=== PATIENT | male | born 1950 | race Caucasian/White ===

== ENCOUNTER 2016-07-21 07:43 | Emergency (ER) | payer MEDICARE, OTHER ==
[~2016-07-21] VITALS: Ht 172.7 cm; Wt 98.0 kg
[~2016-07-21 07:43] MED LIST: ASPI-99 PO; HYDR-3129 PO; MEVA40TA6 PO; NEBI2.5 PO; NEXI40CA PO; RYTH225C PO; VIAG50TA PO
[2016-07-21 07:48] VITALS: BP 117/75; PULSE 58; RESP 16; TEMP 98.6; O2SAT 99
--- NOTE | 2016-07-21 08:06 | PD ---
HPI Chief Complaint: Abdominal Pain Time Seen by Provider: 07:53 Travel History International Travel<30 days: No Contact w/Intl Traveler<30days: No Traveled to known affect area: No History of Present Illness HPI This is a 66-year-old male who presents with 1 month of constant mild epigastric abdominal discomfort, feeling like a throbbing in the upper abdomen, worse with eating associated with some gas, with no nausea, vomiting, fevers, chills, diarrhea or constipation. The patient is already on Nexium but he saw a commercial regarding Nexium causing stomach viruses and was concerned about that so he took himself off yesterday. He had a right upper quadrant ultrasound about a month ago in the setting of the symptoms demonstrating a normal gallbladder. He has an appointment with his city sanitarian in 2 weeks. He says he had a normal endoscopy 1 year ago and a normal colonoscopy 5 years ago. He says the symptoms are not exertional and he has no chest pain, shortness of breath or dyspnea on exertion. PFSH Past Medical History Hx Anticoagulant Therapy: Yes (81 MG. ASA) Arthritis: Yes Asthma: No Atrial Fibrillation: Yes Autoimmune Disease: No Blood Disorders: No Anxiety: Yes Depression: No Heart Rhythm Problems: Yes (A-FIB) Cancer: No Cardiovascular Problems: Yes (CHOL) High Cholesterol: Yes Chemotherapy: No Chest Pain: No Congestive Heart Failure: No COPD: No Cerebrovascular Accident: No Diabetes: No Diminished Hearing: Yes (HEARING AIDS) Endocrine: No Gastrointestinal Disorders: Yes GERD: Yes Glaucoma: No Genitourinary: No Headaches: No Hepatitis: No Hiatal Hernia: Yes Hypertension: Yes Immune Disorder: No Implanted Vascular Access Dvce: No Musculoskeletal: Yes (NECK AND BACK PAIN) Neurologic: No Psychiatric: Yes Reproductive: No Respiratory: Yes (SPOT ON LUNG) Immunizations Current: Yes Migraines: No Myocardial Infarction: No Radiation Therapy: No Renal Failure: No Seizures: No Sickle Cell Disease: No Sleep Apnea: Yes Thyroid Disease: No Ulcer: No Past Surgical History Abdominal Surgery: No AICD: No Appendectomy: No Arteriovenous Shunt: No Cardiac Surgery: Yes (ABLATION X 2) Cholecystectomy: No Ear Surgery: No Endocrine Surgery: No Eye Surgery: Yes ("MANY EYE SURGERIES ON BOTH EYES") Genitourinary Surgery: No Gynecologic Surgery: No Insulin Pump: No Joint Replacement: No Neurologic Surgery: No Oral Surgery: No Pacemaker: No Thoracic Surgery: No Other Surgery: Yes (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,BENIGN") Social History Alcohol Use: Yes (RARELY) Tobacco Use: No Substance Use: No Allergies-Medications (Allergen,Severity, Reaction): Coded Allergies: Haldol (Verified Allergy, Severe, Anaphylaxis, 07/21/16) Shellfish (Verified Allergy, Severe, tongue and throat swelling, 07/21/16) Reported Meds & Prescriptions Reported Meds & Active Scripts Active Reported Hydrocodone-Acetaminophen 10-325 mg Tab 1 Tab PO Q6H PRN Omeprazole 20 Mg Tab 20 Mg PO DAILY Bystolic (Nebivolol) 2.5 Mg Tab 2.5 Mg PO DAILY Aspirin 81 Mg Chew 81 Mg CHEW DAILY Lovastatin 40 Mg Tab 40 Mg PO DAILY Rythmol SR (Propafenone HCl) 225 Mg Cap 225 Mg PO Q12HR Review of Systems Except as stated in HPI: all other systems reviewed are Neg Physical Exam Narrative GENERAL:Well appearing, no acute distress SKIN: Warm and dry. HEAD: Atraumatic. Normocephalic. EYES: Pupils equal and round. No injection or drainage. ENT: Moist mucous membranes NECK: Trachea midline. CARDIOVASCULAR: Regular rate and rhythm. No murmur appreciated. RESPIRATORY: Clear to auscultation. Breath sounds equal bilaterally. GASTROINTESTINAL: Abdomen soft, non-tender, nondistended. MUSCULOSKELETAL: No obvious deformities. NEUROLOGICAL: Awake and alert. No obvious cranial nerve deficits. Moving all extremities. PSYCHIATRIC: Appropriate mood and affect; insight and judgment normal. Data Data Last Documented VS Vital Signs Date Time Temp Pulse Resp B/P Pulse Ox O2 Delivery O2 Flow Rate FiO2 07/21/16 07:48 98.6 58 16 117/75 99 Orders Complete Blood Count With Diff (07/21/16 08:02) Comprehensive Metabolic Panel (07/21/16 08:02) Lipase (07/21/16 08:02) Iv Access Insert/Monitor (07/21/16 08:02) Ecg Monitoring (07/21/16 08:02) Oximetry (07/21/16 08:02) Sodium Chloride 0.9% Flush (Ns Flush) (07/21/16 08:15) Electrocardiogram (07/21/16 08:02) Troponin I (07/21/16 08:02) Aspirin Chew (Aspirin Chew) (07/21/16 09:00) Labs Laboratory Tests Test 07/21/16 08:05 White Blood Count 6.4 TH/MM3 Red Blood Count 5.50 MIL/MM3 Hemoglobin 16.2 GM/DL Hematocrit 50.4 % Mean Corpuscular Volume 91.8 FL Mean Corpuscular Hemoglobin 29.4 PG Mean Corpuscular Hemoglobin 32.0 % Concent Red Cell Distribution Width 13.6 % Platelet Count 190 TH/MM3 Mean Platelet Volume 8.0 FL Neutrophils (%) (Auto) 66.0 % Lymphocytes (%) (Auto) 22.6 % Monocytes (%) (Auto) 8.4 % Eosinophils (%) (Auto) 2.4 % Basophils (%) (Auto) 0.6 % Neutrophils # (Auto) 4.3 TH/MM3 Lymphocytes # (Auto) 1.4 TH/MM3 Monocytes # (Auto) 0.5 TH/MM3 Eosinophils # (Auto) 0.2 TH/MM3 Basophils # (Auto) 0.0 TH/MM3 CBC Comment DIFF FINAL Differential Comment Sodium Level 142 MEQ/L Potassium Level 4.1 MEQ/L Chloride Level 107 MEQ/L Carbon Dioxide Level 28.1 MEQ/L Anion Gap 7 MEQ/L Blood Urea Nitrogen 17 MG/DL Creatinine 1.20 MG/DL Estimat Glomerular Filtration 61 ML/MIN Rate Random Glucose 90 MG/DL Calcium Level 8.5 MG/DL Total Bilirubin 1.7 MG/DL Aspartate Amino Transf 17 U/L (AST/SGOT) Alanine Aminotransferase 19 U/L (ALT/SGPT) Alkaline Phosphatase 75 U/L Troponin I 0.11 NG/ML Total Protein 7.5 GM/DL Albumin 3.6 GM/DL Lipase 166 U/L [facility] Medical Decision Making Medical Screen Exam Complete: Yes Emergency Medical Condition: Yes Interpretation(s) Afebrile, no tachycardia, normotensive No leukocytosis Electrolytes are reassuring Total bilirubin is elevated and similar to prior Ultrasound of the gallbladder from July 02 was negative for stone Troponin is 0.11 Lipase is 166 Differential Diagnosis Gastritis, peptic ulcer disease, cholecystitis, cholelithiasis, unstable angina , acute coronary syndrome Narrative Course This is a 66-year-old male who presents to the emergency department with epigastric discomfort that's been going on for 1 month. He had a normal ultrasound performed on July 02, 2016 at [facility]. EKG was reassuring. He was placed on a monitor and an IV was established. Labs were obtained which demonstrated a troponin of 0.11 concerning for cardiac etiology of the patient's symptoms. I had a long conversation with the patient regarding my concern for coronary artery disease and an unstable plaque. Patient can't stay in the hospital because he has pets. He also says that his orthopedics nurse is at [facility] and he wants to go there. He says he is going to have her friend pick him up from here, he is going to check on his animals and then go to [facility]. Patient was given an additional dose of aspirin. He was given a copy of his labs and I expressed the imperative nature of him following up as soon as possible. Diagnosis Primary Impression: Unstable angina Additional Instructions: Were very concerned about your heart and your leaving AGAINST MEDICAL ADVICE. You need to follow-up as soon as possible to be admitted to the hospital for possible stress test or catheterization. Med/Other Pt SpecificInfo: No Change to Meds Disposition: 07 AGAINST MEDICAL ADVICE Condition: Nilda Montelongo MD Jul 21, 2016 08:05
[2016-07-21] MEDS ORDERED: SODIUM CHLORIDE 0.9% FLUSH 5 ML FLUSH IVF PRN (08:15)
[2016-07-21 08:16] LABS: AUTOMATED NEUTROPHIL # 4.3 TH/MM3 (1.8-7.7); BASOPHIL % 0.6 % (0.0-2.0); EOSINOPHIL # 0.2 TH/MM3 (0-0.4); EOSINOPHIL % 2.4 % (0.0-4.0); HEMATOCRIT 50.4 % (39.0-51.0); HEMO FLAGS DIFF FINAL; LYMPH % 22.6 % (9.0-44.0); LYMPHOCYTE # 1.4 TH/MM3 (1.0-4.8); MEAN CELL VOLUME 91.8 FL (80.0-100.0); MEAN CORPUSCULAR HEMOGLOBIN 29.4 PG (27.0-34.0); MONO % 8.4 % (0.0-8.0); PLATELET COUNT 190 TH/MM3 (150-450); RED CELL DISTRIBUTION WIDTH 13.6 % (11.6-17.2); WHITE BLOOD COUNT 6.4 TH/MM3 (4.0-11.0)
[2016-07-21 08:23] LABS: CHLORIDE 107 MEQ/L (98-107); POTASSIUM 4.1 MEQ/L (3.5-5.1); SODIUM (NA) 142 MEQ/L (136-145)
[2016-07-21 08:27] LABS: ANION GAP 7 MEQ/L (5-15); BICARBONATE 28.1 MEQ/L (21.0-32.0); BLOOD UREA NITROGEN 17 MG/DL (7-18)
[2016-07-21 08:29] LABS: ALT (GPT) 19 U/L (12-78)
[2016-07-21 08:30] LABS: AST (GOT) 17 U/L (15-37); GLOMERULAR FILTRATION RATE 61 ML/MIN (>89)
[2016-07-21 08:31] LABS: TOTAL BILIRUBIN ADULT 1.7 MG/DL (0.2-1.0)
[2016-07-21 08:32] LABS: ALKALINE PHOSPHATASE 75 U/L (45-117)
[2016-07-21] MEDS ORDERED: RYTH225C PO (08:42)
[2016-07-21] MEDS ORDERED: HYDR-3583 PO (08:42)
[2016-07-21] MEDS ORDERED: BYST2.5T2 PO (08:42)
[2016-07-21] MEDS ORDERED: ASPI81CH CHEW (08:42)
[2016-07-21] MEDS ORDERED: OMEP20TA PO (08:42)
[2016-07-21] MEDS ORDERED: LOVA40TA PO (08:42)
[2016-07-21] MEDS ORDERED: ASPIRIN 81 MG CHEW TAB CHEW ONE (09:00)
--- NOTE | 2016-07-22 12:13 | EKG ---
Date Performed: 07/21/2016 Time Performed: 08:02:36 PTAGE: 66 years EKG: Normal Sinus rhythm Left axis deviation Left anterior fascicular block Incomplete right bundle branch block Since previo us tracing, no significant change noted Abnormal ECG PREVIOUS TRACING : 07/19/2014 08.38 DOCTOR: Roger Tidwell Interpretating Date/Time 07/22/2016 12:13:07
--- NOTE | 2016-07-22 12:15 | EKG ---
Date Performed: 07/21/2016 Time Performed: 08:45:42 PTAGE: 66 years EKG: Sinus bradycardia Left anterior fascicular block Incomplete right bundle branch block Since previous tracing, no significant change noted Abnormal ECG PREVIOUS TRACING : 07/21/2016 08.02 DOCTOR: Roger Tidwell Interpretating Date/Time 07/22/2016 12:13:30
== END 2016-07-21 09:11 | disposition left against medical advice (07) ==
LOC: PHED 07:43
DX: I20.0 Unstable angina (principal); I10 Essential (primary) hypertension
CPT/HCPCS: 80053; 83690; 84484; 85025; 93005

== ENCOUNTER 2016-10-17 20:27 | Emergency (ER) | payer MEDICARE, OTHER ==
[~2016-10-17] VITALS: Ht 172.7 cm; Wt 98.7 kg
[~2016-10-17 20:27] MED LIST changes: -ASPI-99 PO; +ASPI81CH CHEW; +BYST2.5T2 PO; -HYDR-3129 PO; +HYDR-3583 PO; +LOVA40TA PO; -MEVA40TA6 PO; -NEBI2.5 PO; -NEXI40CA PO; +OMEP20TA PO; -VIAG50TA PO
[2016-10-17 20:51] VITALS: BP 162/89; PULSE 72; RESP 20; TEMP 98.5; O2SAT 98
--- NOTE | 2016-10-17 20:51 | PD ---
HPI Chief Complaint: Cardiac Complaint Time Seen by Provider: 20:37 Travel History International Travel<30 days: No Contact w/Intl Traveler<30days: No Traveled to known affect area: No History of Present Illness HPI This 66-year-old male presents with complaint that he may have atrial fibrillation. He has a history of atrial fibrillation. He has had ablation done twice. The years she was on Rythmol and Bystolic as well as aspirin for his atrial fibrillation. [address] Farrar who is his crew chief told him the stop his Bystolic. He was having low heart rate. He stopped the Bystolic but then in the middle the night had palpitations. He took a Bystolic and the palpitations resolved. He then resumed taking the Bystolic until last week. He went to Dr. Farrar again and he asked him to try to stop the Bystolic. He has been off it for about a week. He says that tonight he was checking his heart rate on his monitor and the rate was quite variable between 80-90 and 95 and he was feeling like it might be skipping a beat. He did not have chest pain or shortness of breath. PFSH Past Medical History Hx Anticoagulant Therapy: Yes (81 MG. ASA) Arthritis: Yes Asthma: No Atrial Fibrillation: Yes Autoimmune Disease: No Blood Disorders: No Anxiety: Yes Depression: No Heart Rhythm Problems: Yes (A-FIB) Cancer: No Cardiovascular Problems: Yes (CHOL) High Cholesterol: Yes Chemotherapy: No Chest Pain: No Congestive Heart Failure: No COPD: No Cerebrovascular Accident: No Diabetes: No Diminished Hearing: Yes (HEARING AIDS) Endocrine: No Gastrointestinal Disorders: Yes GERD: Yes Glaucoma: No Genitourinary: No Headaches: No Hepatitis: No Hiatal Hernia: Yes Hypertension: Yes Immune Disorder: No Implanted Vascular Access Dvce: No Musculoskeletal: Yes (NECK AND BACK PAIN) Neurologic: No Psychiatric: Yes Reproductive: No Respiratory: Yes (SPOT ON LUNG) Immunizations Current: Yes Migraines: No Myocardial Infarction: No Radiation Therapy: No Renal Failure: No Seizures: No Sickle Cell Disease: No Sleep Apnea: Yes Thyroid Disease: No Ulcer: No Past Surgical History Abdominal Surgery: No AICD: No Appendectomy: No Arteriovenous Shunt: No Cardiac Surgery: Yes (ABLATION X 2) Cholecystectomy: No Ear Surgery: No Endocrine Surgery: No Eye Surgery: Yes ("MANY EYE SURGERIES ON BOTH EYES") Genitourinary Surgery: No Gynecologic Surgery: No Insulin Pump: No Joint Replacement: No Neurologic Surgery: No Oral Surgery: No Pacemaker: No Thoracic Surgery: No Other Surgery: Yes (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,BENIGN") Social History Alcohol Use: Yes (RARELY) Tobacco Use: No Substance Use: No Allergies-Medications (Allergen,Severity, Reaction): Coded Allergies: Haldol (Verified Allergy, Severe, Anaphylaxis, 10/17/16) Shellfish (Verified Allergy, Severe, tongue and throat swelling, 10/17/16) Reported Meds & Prescriptions Reported Meds & Active Scripts Active Reported Hydrocodone-Acetaminophen 10-325 mg Tab 1 Tab PO Q6H PRN Omeprazole 20 Mg Tab 20 Mg PO DAILY Bystolic (Nebivolol) 2.5 Mg Tab 2.5 Mg PO DAILY Aspirin 81 Mg Chew 81 Mg CHEW DAILY Lovastatin 40 Mg Tab 40 Mg PO DAILY Rythmol SR (Propafenone HCl) 225 Mg Cap 225 Mg PO Q12HR Review of Systems General / Constitutional: No: Fever, Chills Eyes: No: Diploplia, Blurred Vision HENT: No: Headaches, Vertigo Cardiovascular: Positive: Irregular Rhythm, No: Chest Pain or Discomfort, Palpitations Respiratory: No: Cough, Shortness of Breath Gastrointestinal: No: Nausea, Vomiting Genitourinary: No: Frequency, Dysuria Musculoskeletal: No: Myalgias, Arthralgias Skin: No Rash, No Itching Neurologic: No: Weakness Psychiatric: No: Anxiety Endocrine: No: Cold Intolerance Hematologic/Lymphatic: No: Easy Bruising Physical Exam Narrative GENERAL: Well-developed male SKIN: Focused skin assessment warm/dry. There are scattered patches of vitiligo HEAD: Atraumatic. Normocephalic. EYES: Pupils equal and round. No scleral icterus. No injection or drainage. ENT: No nasal bleeding or discharge. Mucous membranes pink and moist. NECK: Trachea midline. No JVD. CARDIOVASCULAR: Regular rate and rhythm. No murmur appreciated. RESPIRATORY: No accessory muscle use. Clear to auscultation. Breath sounds equal bilaterally. GASTROINTESTINAL: Abdomen soft, non-tender, nondistended. Hepatic and splenic margins not palpable. MUSCULOSKELETAL: No obvious deformities. No clubbing. No cyanosis. No edema. NEUROLOGICAL: Awake and alert. No obvious cranial nerve deficits. Motor grossly within normal limits. Normal speech. PSYCHIATRIC: Appropriate mood and affect; insight and judgment normal. Data Data Last Documented VS Vital Signs Date Time Temp Pulse Resp B/P Pulse Ox O2 Delivery O2 Flow Rate FiO2 10/17/16 20:54 98 20 162/89 98 10/17/16 20:51 98.5 10/17/16 20:35 Room Air Orders Basic Metabolic Panel (Bmp) (10/17/16 20:51) Troponin I (10/17/16 20:51) Magnesium (Mg) (10/17/16 20:51) Electrocardiogram (10/17/16 20:35) Labs Laboratory Tests Test 10/17/16 21:15 Sodium Level 143 MEQ/L Potassium Level 4.1 MEQ/L Chloride Level 107 MEQ/L Carbon Dioxide Level 26.4 MEQ/L Anion Gap 10 MEQ/L Blood Urea Nitrogen 25 MG/DL Creatinine 1.20 MG/DL Estimat Glomerular Filtration 61 ML/MIN Rate Random Glucose 107 MG/DL Calcium Level 8.4 MG/DL Magnesium Level 2.3 MG/DL Troponin I 0.10 NG/ML MDM Medical Decision Making Medical Screen Exam Complete: Yes Emergency Medical Condition: Yes Medical Record Reviewed: Yes Differential Diagnosis Differential includes atrial fibrillation, PVCs, flutter, sinus rhythm Narrative Course Patient is in sinus rhythm at this time and has been stable. He has no pain or shortness of breath. Troponin was checked and it has come back elevated at 0.1. He has some mild elevation of creatinine. Review of previous chart shows that he was here a few months ago at which time his troponin was 0.11. On that night he went to [facility] and since troponin was normal there. He did not have any pain and I don't think he needs evaluation for myocardial infarction. He will be released he has been given copies of his lab and EKG follow-up with Dr. Farrar Diagnosis Primary Impression: Palpitations Additional Instructions: Follow-up with Dr. Farrar Disposition: 01 DISCHARGE HOME Condition: Stable Fred Cole MD Oct 17, 2016 20:51
[2016-10-17 20:54] VITALS: BP 162/89; PULSE 98; RESP 20; O2SAT 98
[2016-10-17 21:33] LABS: BICARBONATE 26.4 MEQ/L (21.0-32.0); MAGNESIUM 2.3 MG/DL (1.5-2.5)
[2016-10-17 21:36] VITALS: BP 137/70; PULSE 72; RESP 20; O2SAT 99
[2016-10-17 21:41] LABS: POTASSIUM 4.1 MEQ/L (3.5-5.1)
[2016-10-17 22:31] VITALS: BP 146/74
--- NOTE | 2016-10-18 14:08 | EKG ---
Date Performed: 10/17/2016 Time Performed: 20:35:52 PTAGE: 66 years EKG: Sinus rhythm . Left axis deviation Since previous tracing, no significant change noted Abnormal ECG PREVIOUS TRACING : 07/21/2016 08.45 DOCTOR: Alexandra Nolasco Interpretating Date/Time 10/18/2016 14:05:56
== END 2016-10-17 22:34 | disposition home or self-care (01) ==
LOC: PHED 20:27
DX: R00.2 Palpitations (principal); R94.31 Abnormal electrocardiogram [ECG] [EKG]
CPT/HCPCS: 80048; 83735; 84484; 93005

== ENCOUNTER 2016-12-04 07:54 | Emergency (ER) | payer MEDICARE, OTHER ==
[~2016-12-04] VITALS: Ht 172.7 cm; Wt 97.0 kg
[2016-12-04 07:56] VITALS: BP 129/79; PULSE 68; RESP 17; TEMP 97.9; O2SAT 99
--- NOTE | 2016-12-04 08:43 | PD ---
HPI . Right thigh pain Chief Complaint: Pain: Acute or Chronic Time Seen by Provider: 08:02 Travel History International Travel<30 days: No Contact w/Intl Traveler<30days: No Traveled to known affect area: No History of Present Illness HPI Patient presents complaining with intermittent right thigh pain since yesterday. He describes an intermittent sharp pain. Pain is rated as 5/10. Pain is exacerbated by walking. Pain is relieved by resting. He states that he contacted his primary care provider who instructed him to present to us for evaluation of possible DVT. The patient denies any recent long trips. He has not been bedridden or immobilized recently. He has no history of cancer. The patient does complain with chronic low back pain. He believes that he may have sciatica. PFSH Past Medical History Hx Anticoagulant Therapy: Yes (325 MG. ASA) Arthritis: Yes Asthma: No Atrial Fibrillation: Yes Autoimmune Disease: No Blood Disorders: No Anxiety: Yes Depression: No Heart Rhythm Problems: Yes (A-FIB) Cancer: No Cardiovascular Problems: Yes (CHOL) High Cholesterol: Yes Chemotherapy: No Chest Pain: No Congestive Heart Failure: No COPD: No Cerebrovascular Accident: No Diabetes: No Diminished Hearing: Yes (HEARING AIDS) Endocrine: No Gastrointestinal Disorders: Yes GERD: Yes Glaucoma: No Genitourinary: No Headaches: No Hepatitis: No Hiatal Hernia: Yes Heparin Induced Thrombocytopen: No Hypertension: Yes Immune Disorder: No Implanted Vascular Access Dvce: No Musculoskeletal: Yes (NECK AND BACK PAIN) Neurologic: No Psychiatric: Yes Reproductive: No Respiratory: Yes (SPOT ON LUNG) Immunizations Current: Yes Migraines: No Myocardial Infarction: No Radiation Therapy: No Renal Failure: No Seizures: No Sickle Cell Disease: No Sleep Apnea: Yes Thyroid Disease: No Ulcer: No Tetanus Vaccination: Unknown Past Surgical History Abdominal Surgery: No AICD: No Appendectomy: No Arteriovenous Shunt: No Cardiac Surgery: Yes (ABLATION X 2) Cholecystectomy: No Ear Surgery: No Endocrine Surgery: No Eye Surgery: Yes ("MANY EYE SURGERIES ON BOTH EYES") Genitourinary Surgery: No Gynecologic Surgery: No Insulin Pump: No Joint Replacement: No Neurologic Surgery: No Oral Surgery: No Pacemaker: No Thoracic Surgery: No Other Surgery: Yes (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,BENIGN") Social History Alcohol Use: Yes (RARELY) Tobacco Use: No Substance Use: No Allergies-Medications (Allergen,Severity, Reaction): Coded Allergies: Haldol (Verified Allergy, Severe, Anaphylaxis, 12/04/16) Shellfish (Verified Allergy, Severe, tongue and throat swelling, 12/04/16) Reported Meds & Prescriptions Reported Meds & Active Scripts Active Reported Hydrocodone-Acetaminophen 10-325 mg Tab 1 Tab PO Q6H PRN Omeprazole 20 Mg Tab 20 Mg PO QOD Bystolic (Nebivolol) 2.5 Mg Tab 2.5 Mg PO DAILY Aspirin 81 Mg Chew 325 Mg CHEW DAILY Lovastatin 40 Mg Tab 40 Mg PO DAILY Rythmol SR (Propafenone HCl) 225 Mg Cap 225 Mg PO Q12HR Review of Systems Except as stated in HPI: all other systems reviewed are Neg Musculoskeletal: Positive: Myalgias Physical Exam Narrative GENERAL: Awake and alert and in no acute distress. SKIN: Warm and dry. No discoloration. HEAD: Atraumatic. Normocephalic. EYES: Pupils equal and round. NECK: Trachea midline. CARDIOVASCULAR: Regular rate and rhythm. RESPIRATORY: No accessory muscle use. MUSCULOSKELETAL: No obvious deformities. No edema. There is no swelling of his right leg. There is no tenderness along the veins of his leg. No collateral circulation noted. NEUROLOGICAL: Awake and alert. No obvious cranial nerve deficits. Motor grossly within normal limits. Normal speech. PSYCHIATRIC: Appropriate mood and affect; insight and judgment normal. Data Data Last Documented VS Vital Signs Date Time Temp Pulse Resp B/P Pulse Ox O2 Delivery O2 Flow Rate FiO2 12/04/16 07:56 97.9 68 17 129/79 99 Orders D-Dimer (12/04/16 08:06) Ed Poc Ultrasound (12/04/16 08:06) MDM Medical Decision Making Medical Screen Exam Complete: Yes Emergency Medical Condition: Yes Differential Diagnosis My differential diagnosis of a swollen extremity includes but is not limited to superficial phlebitis, DVT, cellulitis Narrative Course Patient presents complaining with pain in his right thigh. Wells criteria are negative. Procedures Procedure Narrative VENOUS ULTRASOUND: Following patient consent, identification of the correct patient and identification of the correct extremity, the veins of the thigh were examined from the inguinal ligament to the popliteal fossa. The vein was completely compressible along its entire course and no visible clot was seen. Diagnosis Primary Impression: Right thigh pain Patient Instructions: General Instructions, Leg Pain (ED) Disposition: 01 DISCHARGE HOME Condition: Stable Darshana Brown MD December 04, 2016 08:43
== END 2016-12-04 08:59 | disposition home or self-care (01) ==
LOC: PHED 07:54
DX: M79.651 Pain in right thigh (principal); I10 Essential (primary) hypertension; M19.90 Unspecified osteoarthritis, unspecified site; I48.91 Unspecified atrial fibrillation; Z79.82 Long term (current) use of aspirin
CPT/HCPCS: 85379; 99284

== ENCOUNTER 2017-02-11 12:09 | Emergency (ER) | payer MEDICARE, OTHER ==
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
[2017-02-11 12:59] LABS: AUTOMATED NEUTROPHIL # 3.5 TH/MM3 (1.8-7.7); BASOPHIL % 0.8 % (0.0-2.0); EOSINOPHIL % 0.8 % (0.0-4.0); HEMATOCRIT 48.1 % (39.0-51.0); HEMO FLAGS DIFF FINAL; LYMPH % 22.9 % (9.0-44.0); LYMPHOCYTE # 1.2 TH/MM3 (1.0-4.8); MEAN CORPUSCULAR HEMOGLOBIN 30.8 PG (27.0-34.0); MEAN CORPUSCULAR HGB CONC 33.5 % (32.0-36.0); MONO % 8.2 % (0.0-8.0); NEUT % 67.3 % (16.0-70.0); PLATELET COUNT 180 TH/MM3 (150-450); RED BLOOD COUNT 5.23 MIL/MM3 (4.50-5.90); RED CELL DISTRIBUTION WIDTH 13.7 % (11.6-17.2); WHITE BLOOD COUNT 5.2 TH/MM3 (4.0-11.0)
[2017-02-11 13:12] LABS: AMPHETAMINE, URINE NEG (NEG); BARBITURATES, URINE NEG (NEG); COCAINE, URINE NEG (NEG)
[2017-02-11 13:23] LABS: ALT (GPT) 19 U/L (12-78); ANION GAP 10 MEQ/L (5-15); AST (GOT) 26 U/L (15-37); BICARBONATE 23.5 MEQ/L (21.0-32.0); BLOOD UREA NITROGEN 15 MG/DL (7-18); CHLORIDE 106 MEQ/L (98-107); GLOMERULAR FILTRATION RATE 70 ML/MIN (>89); POTASSIUM 3.7 MEQ/L (3.5-5.1); SODIUM (NA) 139 MEQ/L (136-145)
[2017-02-11 13:25] LABS: ALKALINE PHOSPHATASE 64 U/L (45-117); TOTAL BILIRUBIN ADULT 1.3 MG/DL (0.2-1.0)
[2017-02-11] MEDS ORDERED: NEXI20CA PO (16:26)
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
== END 2017-02-11 18:18 | disposition home or self-care (01) ==
LOC: NEPD 12:09
DX: F43.20 Adjustment disorder, unspecified (principal); E78.00 Pure hypercholesterolemia, unspecified; H91.90 Unspecified hearing loss, unspecified ear; I48.91 Unspecified atrial fibrillation; K21.9 Gastro-esophageal reflux disease without esophagitis; I10 Essential (primary) hypertension; Z79.82 Long term (current) use of aspirin
CPT/HCPCS: 80053; 80307; 85025; 99284

== ENCOUNTER 2017-03-15 11:07 | Emergency (ER) | payer MEDICARE, OTHER ==
[~2017-03-15] VITALS: Ht 172.7 cm; Wt 91.6 kg
[~2017-03-15 11:07] MED LIST changes: -BYST2.5T2 PO; +NEXI20CA PO; -OMEP20TA PO
[2017-03-15 11:18] VITALS: BP 139/78; PULSE 62; RESP 18; TEMP 98.6; O2SAT 97
[2017-03-15] MEDS ORDERED: AMOX875T PO (11:25)
[2017-03-15] MEDS ORDERED: MEDR4PAK PO (11:25)
[2017-03-15] MEDS ORDERED: TETANUS/DIPHTHERIA TOXOID ADULT 0.5 ML VIAL IM ONE (11:30)
--- NOTE | 2017-03-15 11:40 | PD ---
HPI Chief Complaint: Bite or Sting Time Seen by Provider: 11:29 Travel History International Travel<30 days: No Contact w/Intl Traveler<30days: No Traveled to known affect area: No History of Present Illness HPI 66-year-old male presents to the ED for evaluation of cat scratches of the left hand. Sustained just before arrival. Patient states that a friend's cat was stuck in a chair. The patient went over to help the cat and the cat scratched his index finger and thumb. Patient washed the wounds, applied Band-Aids and presented for treatment. He is unsure of the last tetanus immunization. PFSH Past Medical History Hx Anticoagulant Therapy: Yes (325 MG. ASA) Arthritis: Yes Asthma: No Atrial Fibrillation: Yes Autoimmune Disease: No Blood Disorders: No Anxiety: Yes Depression: No Heart Rhythm Problems: Yes (A-FIB) Cancer: No Cardiovascular Problems: Yes (CHOL) High Cholesterol: Yes Chemotherapy: No Chest Pain: No Congestive Heart Failure: No COPD: No Cerebrovascular Accident: No Diabetes: No Diminished Hearing: Yes (HEARING AIDS) Endocrine: No Gastrointestinal Disorders: Yes GERD: Yes Glaucoma: No Genitourinary: No Headaches: No Hepatitis: No Hiatal Hernia: Yes Heparin Induced Thrombocytopen: No Hypertension: Yes Immune Disorder: No Implanted Vascular Access Dvce: No Musculoskeletal: Yes (NECK AND BACK PAIN) Neurologic: No Psychiatric: Yes Reproductive: No Respiratory: Yes (SPOT ON LUNG) Immunizations Current: Yes Migraines: No Myocardial Infarction: No Radiation Therapy: No Renal Failure: No Seizures: No Sickle Cell Disease: No Sleep Apnea: Yes Thyroid Disease: No Ulcer: No Past Surgical History Abdominal Surgery: No AICD: No Appendectomy: No Arteriovenous Shunt: No Cardiac Surgery: Yes (ABLATION X 2) Cholecystectomy: No Ear Surgery: No Endocrine Surgery: No Eye Surgery: Yes ("MANY EYE SURGERIES ON BOTH EYES") Genitourinary Surgery: No Gynecologic Surgery: No Insulin Pump: No Joint Replacement: No Neurologic Surgery: No Oral Surgery: No Pacemaker: No Thoracic Surgery: No Other Surgery: Yes (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,BENIGN") Social History Alcohol Use: No (RARELY) Tobacco Use: No Substance Use: No Allergies-Medications (Allergen,Severity, Reaction): Coded Allergies: haloperidol (Unverified Allergy, Severe, Anaphylaxis, 03/15/17) shellfish derived (Unverified Allergy, Severe, tongue and throat swelling , 03/15/17) Reported Meds & Prescriptions Reported Meds & Active Scripts Active Augmentin (Amoxicillin-Clavulanate) 875-125 Mg Tab 1 Tab PO BID 7 Days Reported Medrol Dosepak (Methylprednisolone) 4 Mg Dspk 4 Mg PO DIRECTED Per Pharmacist direction Amoxicillin 875 Mg Tab 875 Mg PO BID Nexium (Esomeprazole DR) 20 Mg Capdr 20 Mg PO DAILY Aspirin 81 Mg Chew 325 Mg CHEW DAILY Lovastatin 40 Mg Tab 40 Mg PO DAILY Rythmol SR (Propafenone HCl) 225 Mg Cap 225 Mg PO Q12HR Review of Systems Except as stated in HPI: all other systems reviewed are Neg Physical Exam Narrative GENERAL: Well-nourished, well-developed white male in no acute distress. SKIN: Focused skin assessment warm/dry. Subcentimeter superficial scratches of the distal tips of the third and fourth fingers. No finger nail involvement.~1 cm superficial laceration on the thenar eminence. No warmth, erythema, drainage. HEAD: Normocephalic. EYES: No scleral icterus. No injection or drainage. NECK: Supple, trachea midline. No JVD or lymphadenopathy. CARDIOVASCULAR: Regular rate and rhythm without murmurs, gallops, or rubs. RESPIRATORY: Breath sounds equal bilaterally. No accessory muscle use. GASTROINTESTINAL: Abdomen soft, non-tender, nondistended. MUSCULOSKELETAL: No cyanosis, or edema. Focused left upper extremity exam: 2+ radial pulse. Full, active, painless range of motion of the extremity. BACK: Nontender without obvious deformity. No CVA tenderness. Data Data Last Documented VS Vital Signs Date Time Temp Pulse Resp B/P (MAP) Pulse Ox O2 Delivery O2 Flow Rate FiO2 03/15/17 11:18 98.6 62 18 139/78 (98) 97 Orders Orders Tetanus/Diphtheria Tox Adult (Tetanus/Di (03/15/17 11:30) MDM Medical Decision Making Medical Screen Exam Complete: Yes Emergency Medical Condition: Yes Differential Diagnosis Cat scratch versus cellulitis versus infected bite wound versus need for tetanus immunization versus other Narrative Course 6-year-old male presents to the ED for evaluation of cat scratches of the left hand. Sustained just before arrival. Patient states that a friend's cat was stuck in a chair. The patient went over to help the cat and the cat scratched his index finger and thumb. Patient washed the wounds, applied Band-Aids and presented for treatment. He is unsure of the last tetanus immunization. Vitals reviewed. Physical exam reveals a few superficial lacerations in the distal tips of the third and fourth digit and thenar eminence of the left hand. Tetanus immunization was updated. Patient's hand was soaked in Betadine and water. He is prescribed Augmentin 875 twice a day 7 days. Patient's instructed to keep the wound clean, dry, covered, take medication as prescribed , return to the ED for signs of infection, follow up with primary care. He is stable and discharged home. Diagnosis Primary Impression: Cat scratch of left hand Qualified Codes: S60.512A - Abrasion of left hand, initial encounter; W55.03XA - Scratched by cat, initial encounter Additional Impression: Need for prophylactic vaccination with tetanus toxoid alone Referrals: Primary Care Physician Patient Instructions: Cat Scratch Disease (ED), General Instructions, Tetanus ( ED) Additional Instructions: Rest, hydrate. Keep the wounds clean, dry and covered. Stop taking amoxicillin and start taking Augmentin today. Take all antibiotics as prescribed. Return to the ED should reddening, warmth, pus, fever develop. Follow-up with her primary care provider this week. Return to the ED for any urgent or emergent medical condition. Med/Other Pt SpecificInfo: Prescription(s) given Scripts Amoxicillin-Clavulanate (Augmentin) 875-125 Mg Tab 1 TAB PO BID for Infection for 7 Days, TAB 0 Refills Prov: Meme Frederick 03/15/17 Disposition: 01 DISCHARGE HOME Condition: Stable Viola Prakash Mar 15, 2017 11:40
[2017-03-15] MEDS ORDERED: AUGM875T3 PO (11:41)
== END 2017-03-15 12:01 | disposition home or self-care (01) ==
LOC: PHEFT 11:07
DX: S60.512A Abrasion of left hand, initial encounter (principal); I48.91 Unspecified atrial fibrillation; E78.00 Pure hypercholesterolemia, unspecified; I10 Essential (primary) hypertension; K21.9 Gastro-esophageal reflux disease without esophagitis; Z79.01 Long term (current) use of anticoagulants; Z23 Encounter for immunization; W55.03XA Scratched by cat, initial encounter; Y93.K9 Activity, other involving animal care; Y92.009 Unspecified place in unspecified non-institutional (private) residence as the place of occurrence of the external cause; Y99.8 Other external cause status
CPT/HCPCS: 90471; 90714

== ENCOUNTER 2017-07-03 07:07 | Emergency (ER) | payer MEDICARE, OTHER ==
[~2017-07-03] VITALS: Ht 172.7 cm; Wt 89.0 kg
[~2017-07-03 07:07] MED LIST changes: +AMOX875T PO; +ASPI-516 CHEW; -ASPI81CH CHEW; +AUGM875T3 PO; -HYDR-3583 PO; +MEDR4PAK PO
[2017-07-03 07:10] VITALS: BP 142/78; PULSE 71; RESP 16; TEMP 98.1; O2SAT 100
--- NOTE | 2017-07-03 07:35 | PD ---
HPI Chief Complaint: Lump, Cyst, Hernia Time Seen by Provider: 07:20 Travel History International Travel<30 days: No Contact w/Intl Traveler<30days: No Traveled to known affect area: No History of Present Illness HPI Patient is a 67 year old male who comes in complaining of night sweats and lumps on his neck for the past 4 months. He says he was bit by a cat 4 months ago and he is concerned that he contracted an infection. He does not know if he has had a fever. He denies cough of SOB. He does not have any rash or issues where the cat bit him. He says his friend told him that cats carry a lot of diseases, so he should get check out. PFSH Past Medical History Hx Anticoagulant Therapy: Yes (BABY ASA DAILY) Arthritis: Yes Asthma: No Atrial Fibrillation: Yes Autoimmune Disease: No Blood Disorders: No Anxiety: Yes Depression: No Heart Rhythm Problems: Yes (A-FIB) Cancer: No Cardiovascular Problems: Yes (CHOL) High Cholesterol: Yes Chemotherapy: No Chest Pain: No Congestive Heart Failure: No COPD: No Cerebrovascular Accident: No Diabetes: No Diminished Hearing: Yes (HEARING AIDS) Endocrine: No Gastrointestinal Disorders: Yes GERD: Yes Glaucoma: No Genitourinary: No Headaches: No Hepatitis: No Hiatal Hernia: Yes Heparin Induced Thrombocytopen: No Hypertension: Yes Immune Disorder: No Implanted Vascular Access Dvce: No Musculoskeletal: Yes (NECK AND BACK PAIN) Neurologic: No Psychiatric: Yes Reproductive: No Respiratory: Yes (SPOT ON LUNG) Immunizations Current: Yes Migraines: No Myocardial Infarction: No Radiation Therapy: No Renal Failure: No Seizures: No Sickle Cell Disease: No Sleep Apnea: Yes Thyroid Disease: No Ulcer: No Past Surgical History Abdominal Surgery: No AICD: No Appendectomy: No Arteriovenous Shunt: No Cardiac Surgery: Yes (ABLATION X 2) Cholecystectomy: No Ear Surgery: No Endocrine Surgery: No Eye Surgery: Yes ("MANY EYE SURGERIES ON BOTH EYES") Genitourinary Surgery: No Gynecologic Surgery: No Insulin Pump: No Joint Replacement: No Neurologic Surgery: No Oral Surgery: No Pacemaker: No Thoracic Surgery: No Other Surgery: Yes (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,BENIGN") Social History Alcohol Use: No (RARELY) Tobacco Use: No Substance Use: No Allergies-Medications (Allergen,Severity, Reaction): Coded Allergies: haloperidol (Unverified Allergy, Severe, Anaphylaxis, 07/03/17) shellfish derived (Unverified Allergy, Severe, tongue and throat swelling , 07/03/17) Reported Meds & Prescriptions Reported Meds & Active Scripts Active Reported Halcion (Triazolam) 0.25 Mg Tab 0.25 Mg PO HS Pantoprazole (Pantoprazole Sodium) 40 Mg Tab 40 Mg PO DAILY Hydrocodone-Acetaminophen 10-325 mg Tab 1 Tab PO Q6H PRN Aspirin 81 Mg Chew 325 Mg CHEW DAILY Lovastatin 40 Mg Tab 40 Mg PO DAILY Rythmol SR (Propafenone HCl) 225 Mg Cap 225 Mg PO Q12HR Review of Systems Except as stated in HPI: all other systems reviewed are Neg General / Constitutional: Positive: Weight Loss, No: Chills HENT: No: Headaches, Lightheadedness Cardiovascular: No: Chest Pain or Discomfort Respiratory: No: Shortness of Breath Gastrointestinal: No: Vomiting, Abdominal Pain Genitourinary: No: Dysuria Musculoskeletal: No: Myalgias, Edema Skin: No Rash, No Change in Pigmentation Neurologic: No: Weakness, Dizziness Physical Exam Narrative GENERAL: Awake and alert, in no acute distress. SKIN: Focused skin assessment warm/dry. No wounds or signs of infection. HEAD: Atraumatic. Normocephalic. EYES: Pupils equal and round. No scleral icterus. No injection or drainage. ENT: Mucous membranes pink and moist. No pharyngeal swelling, no tonsillar enlargement or exudates. NECK: Trachea midline. No JVD. No lumps or lymph nodes palpable. CARDIOVASCULAR: Regular rate and rhythm. No murmur appreciated. RESPIRATORY: No accessory muscle use. Clear to auscultation. Breath sounds equal bilaterally. MUSCULOSKELETAL: No obvious deformities. No clubbing. No cyanosis. No edema. NEUROLOGICAL: Awake and alert. No obvious cranial nerve deficits. Motor grossly within normal limits. Normal speech. PSYCHIATRIC: Appropriate mood and affect; insight and judgment normal. Data Data Last Documented VS Vital Signs Date Time Temp Pulse Resp B/P (MAP) Pulse Ox O2 Delivery O2 Flow Rate FiO2 07/03/17 07:10 98.1 71 16 142/78 (99) 100 Orders Orders Complete Blood Count With Diff (07/03/17 07:25) Comprehensive Metabolic Panel (07/03/17 07:25) Chest, Pa & Lat (07/03/17 ) Labs Laboratory Tests Test 07/03/17 07:30 White Blood Count 5.1 TH/MM3 Red Blood Count 4.97 MIL/MM3 Hemoglobin 15.1 GM/DL Hematocrit 46.1 % Mean Corpuscular Volume 92.8 FL Mean Corpuscular Hemoglobin 30.3 PG Mean Corpuscular Hemoglobin Concent 32.7 % Red Cell Distribution Width 13.1 % Platelet Count 170 TH/MM3 Mean Platelet Volume 7.7 FL Neutrophils (%) (Auto) 68.8 % Lymphocytes (%) (Auto) 19.9 % Monocytes (%) (Auto) 8.8 % Eosinophils (%) (Auto) 1.8 % Basophils (%) (Auto) 0.7 % Neutrophils # (Auto) 3.6 TH/MM3 Lymphocytes # (Auto) 1.0 TH/MM3 Monocytes # (Auto) 0.4 TH/MM3 Eosinophils # (Auto) 0.1 TH/MM3 Basophils # (Auto) 0.0 TH/MM3 CBC Comment DIFF FINAL Differential Comment Blood Urea Nitrogen 17 MG/DL Creatinine 1.00 MG/DL Random Glucose 102 MG/DL Total Protein 7.2 GM/DL Albumin 3.7 GM/DL Calcium Level 8.2 MG/DL Alkaline Phosphatase 68 U/L Aspartate Amino Transf (AST/SGOT) 19 U/L Alanine Aminotransferase (ALT/SGPT) 17 U/L Total Bilirubin 1.2 MG/DL Sodium Level 139 MEQ/L Potassium Level 3.9 MEQ/L Chloride Level 104 MEQ/L Carbon Dioxide Level 29.2 MEQ/L Anion Gap 6 MEQ/L Estimat Glomerular Filtration Rate 75 ML/MIN MDM Medical Decision Making Medical Screen Exam Complete: Yes Emergency Medical Condition: Yes Medical Record Reviewed: Yes Differential Diagnosis viral illness vs lymphoma vs URI Narrative Course Patient is a 67-year-old male who comes in complaining of lumps in his neck and concern for infection from a cat bite that happened 4 months ago. Exam shows no acute abnormalities. Labs sent show no acute abnormalities. Chest x-ray performed shows no acute abnormalities. Patient advised to follow-up with his primary doctor. Advised to return to the ED as needed for any worsening symptoms. Diagnosis Primary Impression: Viral illness Patient Instructions: General Instructions, Viral Syndrome (ED) Additional Instructions: Follow-up with a primary care doctor. Return to the ED as needed for any worsening symptoms. Disposition: 01 DISCHARGE HOME Condition: Stable Adelaida Horne MD Jul 03, 2017 07:35
[2017-07-03 07:40] LABS: AUTOMATED NEUTROPHIL # 3.6 TH/MM3 (1.8-7.7); BASOPHIL % 0.7 % (0.0-2.0); EOSINOPHIL # 0.1 TH/MM3 (0-0.4); EOSINOPHIL % 1.8 % (0.0-4.0); HEMATOCRIT 46.1 % (39.0-51.0); HEMOGLOBIN 15.1 GM/DL (13.0-17.0); LYMPH % 19.9 % (9.0-44.0); MEAN CELL VOLUME 92.8 FL (80.0-100.0); MEAN CORPUSCULAR HEMOGLOBIN 30.3 PG (27.0-34.0); MEAN CORPUSCULAR HGB CONC 32.7 % (32.0-36.0); MEAN PLATELET VOLUME 7.7 FL (7.0-11.0); MONO % 8.8 % (0.0-8.0); MONOCYTE # 0.4 TH/MM3 (0-0.9); NEUT % 68.8 % (16.0-70.0); PLATELET COUNT 170 TH/MM3 (150-450); RED BLOOD COUNT 4.97 MIL/MM3 (4.50-5.90); RED CELL DISTRIBUTION WIDTH 13.1 % (11.6-17.2); WHITE BLOOD COUNT 5.1 TH/MM3 (4.0-11.0)
[2017-07-03] MEDS ORDERED: PANT40TA3 PO (07:40)
[2017-07-03] MEDS ORDERED: HYDR-3583 PO (07:40)
[2017-07-03] MEDS ORDERED: HALC0.25 PO (07:40)
[2017-07-03 07:50] LABS: CHLORIDE 104 MEQ/L (98-107); SODIUM (NA) 139 MEQ/L (136-145)
[2017-07-03 07:53] LABS: CALCIUM 8.2 MG/DL (8.5-10.1)
[2017-07-03 07:54] LABS: ALBUMIN 3.7 GM/DL (3.4-5.0); BICARBONATE 29.2 MEQ/L (21.0-32.0); BLOOD UREA NITROGEN 17 MG/DL (7-18); GLUCOSE,RANDOM 102 MG/DL (74-106)
[2017-07-03 07:57] LABS: ALT (GPT) 17 U/L (12-78); AST (GOT) 19 U/L (15-37); GLOMERULAR FILTRATION RATE 75 ML/MIN (>89)
[2017-07-03 07:58] LABS: TOTAL BILIRUBIN ADULT 1.2 MG/DL (0.2-1.0); TOTAL PROTEIN 7.2 GM/DL (6.4-8.2)
[2017-07-03 08:00] LABS: ALKALINE PHOSPHATASE 68 U/L (45-117)
--- NOTE | 2017-07-03 08:00 | RADRPT ---
EXAM DATE/TIME: 07/03/2017 07:50 [facility] COMPARISON: CHEST PA & LAT, July 19, 2014, 8:40. INDICATIONS : Fever MEDICAL HISTORY : Chronic obstructive pulmonary disease. SURGICAL HISTORY : None. ENCOUNTER: Initial ACUITY: 1 month PAIN SCORE: 0/10 LOCATION: Bilateral chest FINDINGS: PA and lateral views of the chest demonstrate the lungs to be symmetrically aerated without evidence of mass, infiltrate or effusion. The cardiomediastinal contours are unremarkable. Osseous structure s are intact. CONCLUSION: No acute disease. Ricihe Bonilla MD FACR on July 03, 2017 at 7:58 Board Certified Radiologist. This report was verified electronically.
[2017-07-03 08:25] VITALS: BP 136/68
== END 2017-07-03 08:36 | disposition home or self-care (01) ==
LOC: PHED 07:07
DX: B34.9 Viral infection, unspecified (principal); I48.91 Unspecified atrial fibrillation; F41.9 Anxiety disorder, unspecified; E78.00 Pure hypercholesterolemia, unspecified; K21.9 Gastro-esophageal reflux disease without esophagitis; I10 Essential (primary) hypertension; G47.30 Sleep apnea, unspecified; Z79.82 Long term (current) use of aspirin; Z79.899 Other long term (current) drug therapy
CPT/HCPCS: 71020; 80053; 85025; 99284